=== PATIENT | male | born 1975 | race American Indian/Alaskan Native ===

== ENCOUNTER 2017-03-07 14:44 | Emergency (ER) | payer MEDICAID ==
--- NOTE | 2017-03-07 16:00 | Emergency Department Report ---
Chief Complaint: Psych Stated Complaint: THREATING Time Seen by Provider: 03/07/17 15:50 - HPI History of Present Illness: eval for tch per detention officer had baby fri - ROS Review of Systems: thc abuse probation sent her here MSE screening note: Focused history and physical exam performed. Due to findings the following was ordered: ED Disposition for MSE Condition: Stable
[2017-03-07 16:33] LABS: Basophils % (Auto) 0.8 % (0.0-1.8); Eosinophils % (Auto) 1.9 % (0.0-4.3); Hematocrit 45.8 % (35.5-45.6); Hemoglobin 15.1 gm/dl (11.8-15.2); Mean Corpuscular HGB Conc 33 % (32-34); Mean Corpuscular Hemoglobin 29 pg (28-32); Mean Corpuscular Volume 87 fl (84-94); Platelet Count 258 K/mm3 (140-440); Red Blood Count 5.29 M/mm3 (3.65-5.03); Red Cell Distribution Width 14.1 % (13.2-15.2); White Blood Count 11.8 K/mm3 (4.5-11.0)
--- NOTE | 2017-03-07 16:41 | Emergency Department Report ---
HPI - General Chief Complaint: Psych Time Seen by Provider: 03/07/17 16:37 - HPI HPI: This is a 41-year-old -[place] male who presents to the emergency department via police after patient was having some behavioral disturbance at the Social Security office. The patient says that he did nothing wrong but was angry at his aunt for trying to take his first "lump some." Apparently the patient's Aunt used to be his "studio data analyst" but the patient says that he dismissed her. The police service technician says that she thinks he has a history of schizophrenia and the patient says that he has a history of bipolar disorder. The police service technician says that he is noncompliant with his medication and the patient says that he is compliant with his medication but he cannot remove her the name of it. He currently denies any suicidal or homicidal ideations or any auditory or visual hallucinations. He denies any past medical history. ED Past Medical Hx - Past Medical History Previous Medical History?: Yes Hx Psychiatric Treatment: Yes (DEPRESSION / BIPOLAR / SCHIZOPHRENIA) - Surgical History Past Surgical History?: Yes Hx Cholecystectomy: Yes (March 2014) - Social History Smoking Status: Never Smoker Substance Use Type: None - Medications Home Medications: Home Medications Medication Instructions Recorded Confirmed Last Taken Type No Known Home Medications [No 10/14/16 10/14/16 Unknown History Reported Home Medications] ED Review of Systems ROS: Stated complaint: THREATING Other details as noted in HPI Comment: All other systems reviewed and negative Constitutional: denies: chills, fever Eyes: denies: eye pain, eye discharge, vision change ENT: denies: ear pain, throat pain Respiratory: denies: cough, shortness of breath, wheezing Cardiovascular: denies: chest pain, palpitations Gastrointestinal: denies: abdominal pain, nausea, diarrhea Genitourinary: denies: urgency, dysuria Musculoskeletal: denies: back pain, joint swelling, arthralgia Skin: denies: rash, lesions Neurological: denies: headache, weakness, paresthesias Psychiatric: denies: auditory hallucinations, visual hallucinations, homicidal thoughts, suicidal thoughts Physical Exam - Physical Exam Vital Signs: Vital Signs 03/07/17 16:12 Temperature 98.4 F Pulse Rate 78 Respiratory 16 Rate Blood Pressure 134/93 [Right] O2 Sat by Pulse 97 Oximetry Physical Exam: GENERAL: The patient is well-developed well-nourished. HEENT: Normocephalic. Atraumatic. Extraocular motions are intact. Patient has moist mucous membranes. Pupils equal reactive to light bilaterally. NECK: Supple. Trachea is midline. CHEST/LUNGS: Clear to auscultation. There is no respiratory distress noted. HEART/CARDIOVASCULAR: Regular. There is no tachycardia. There is no gallop rub or murmur. ABDOMEN: Abdomen is soft, nontender. Patient has normal bowel sounds. There is no abdominal distention. SKIN: There is no rash. There is no edema. There is no diaphoresis. NEURO: The patient is awake, alert, and oriented. The patient is cooperative. The patient has no focal neurologic deficits. The patient has normal speech. Cranial nerves II through XII grossly intact. MUSCULOSKELETAL: There is no tenderness or deformity. There is no limitation range of motion. There is no evidence of acute injury. ED Course Vital Signs 03/07/17 16:12 Temperature 98.4 F Pulse Rate 78 Respiratory 16 Rate Blood Pressure 134/93 [Right] O2 Sat by Pulse 97 Oximetry ED Medical Decision Making - Lab Data Result diagrams: 03/07/17 16:18 03/07/17 16:18 - Medical Decision Making 41-year-old male presents the emergency department for a medical evaluation and possible psychiatric evaluation as he was brought in by the police after having some type of behavioral disturbance or angry outburst at the social security office. However the police have not filled out any form saying that the patient was threatening, acting appropriately or any documentation whatsoever. The patient currently is calm, cooperative, cognizant, AAO 3. He denies any homicidal or suicidal ideations, auditory or visual hallucinations. Patient labs thus far been unremarkable. Vital signs stable throughout his ED course. I had the crisis therapist, and talk with the patient and agrees that he does not fit criteria to be made a 1013. I am not sure what the police department intention is regarding arrest versus release, however the patient does not appear to be someone who I need to make a 1013 at this time and therefore is medically cleared for the police to make their decision. - Differential Diagnosis bipolar disorder, schizophrenia, substance abuse, depression Critical Care Time: No Critical care attestation.: If time is entered above; I have spent that time in minutes in the direct care of this critically ill patient, excluding procedure time. ED Disposition Clinical Impression: History of bipolar disorder, Anger reaction Disposition: DISCHARGED TO HOME OR SELFCARE Is pt being admited?: No Condition: Stable Instructions: Bipolar Disorder (ED) Additional Instructions: Please follow-up with a primary care doctor and psychiatrist. I have given you local clinics or departments nearby for this follow-up. Return to the emergency department with any worsening of your symptoms or any acute distress. Referrals: [facility] [Outside] - 3-5 Days [facility] [Outside] - 3-5 Days Time of Disposition: 17:02
[2017-03-07 16:59] LABS: Alanine Aminotransferase 32 units/L (7-56); Albumin 4.2 g/dL (3.9-5); Albumin/Globulin Ratio 1.8 %; Alkaline Phosphatase 62 units/L (35-129); Anion Gap 17 mmol/L; BUN/Creatinine Ratio 9.23; Blood Urea Nitrogen 12 mg/dL (9-20); Calcium 9.3 mg/dL (8.4-10.2); Carbon Dioxide 27 mmol/L (22-30); Chloride 101.9 mmol/L (98-107); Glucose 97 mg/dL (75-100); Potassium 3.9 mmol/L (3.6-5.0); Sodium 142 mmol/L (137-145); Total Protein 6.5 g/dL (6.3-8.2)
[2017-03-07 17:33] VITALS: BP 139/76
== END 2017-03-07 17:32 | disposition home or self-care (01) ==
LOC: ED 14:44
DX: R45.6 Violent behavior (principal); R45.4 Irritability and anger; F31.9 Bipolar disorder, unspecified; F20.9 Schizophrenia, unspecified
CPT/HCPCS: 36415; 80053; 84443; 85025; 99284; G0480; 80320

== ENCOUNTER 2017-07-26 12:54 | Emergency (ER) | payer MEDICAID ==
[2017-07-26 13:05] VITALS: BP 140/92
[2017-07-26] MEDS ORDERED: ZOFRAN ODT PO ONE (13:05)
--- NOTE | 2017-07-26 13:08 | Emergency Department Report ---
Chief Complaint: Nausea/Vomiting/Diarrhea Stated Complaint: NAUSEA/VOMITING Time Seen by Provider: 07/26/17 13:04 - HPI History of Present Illness: PT on all fours. PT dry heaving. PT states this started this morning. PT keeps requesting to be put in a shower. PT difficult to get any information from - Exam Vital Signs: Vital Signs 07/26/17 13:01 Temperature 98.1 F Pulse Rate 78 Respiratory 20 Rate Blood Pressure 140/92 O2 Sat by Pulse 100 Oximetry Physical Exam: PT on all fours. PT states he is unable to sit up MSE screening note: Focused history and physical exam performed. Due to findings the following was ordered: labs, meds ED Disposition for MSE Condition: Stable
[2017-07-26 16:22] LABS: Hematocrit 47.5 % (35.5-45.6); Hemoglobin 15.4 gm/dl (11.8-15.2); Mean Corpuscular HGB Conc 32 % (32-34); Mean Corpuscular Hemoglobin 28 pg (28-32); Mean Corpuscular Volume 86 fl (84-94); Red Blood Count 5.55 M/mm3 (3.65-5.03); White Blood Count 14.8 K/mm3 (4.5-11.0)
[2017-07-26 16:23] LABS: Basophils % (Auto) 0.2 % (0.0-1.8); Eosinophils % (Auto) 0.1 % (0.0-4.3); Platelet Count 289 K/mm3 (140-440); Red Cell Distribution Width 13.7 % (13.2-15.2)
[2017-07-26 16:36] LABS: Alanine Aminotransferase 37 units/L (7-56); Albumin 4.8 g/dL (3.9-5); Albumin/Globulin Ratio 1.5 %; Alkaline Phosphatase 62 units/L (35-129); Anion Gap 21 mmol/L; BUN/Creatinine Ratio 7; Blood Urea Nitrogen 8 mg/dL (9-20); Calcium 9.7 mg/dL (8.4-10.2); Carbon Dioxide 24 mmol/L (22-30); Chloride 101.8 mmol/L (98-107); Glucose 128 mg/dL (75-100); Lipase 23 units/L (13-60); Potassium 3.9 mmol/L (3.6-5.0); Sodium 143 mmol/L (137-145); Total Protein 8.1 g/dL (6.3-8.2)
== END 2017-07-26 15:15 | disposition left against medical advice (07) ==
LOC: ED 12:54
DX: R11.2 Nausea with vomiting, unspecified (principal); Z53.21 Procedure and treatment not carried out due to patient leaving prior to being seen by health care provider
CPT/HCPCS: 36415; 80053; 83690; 85025; Q0162

== ENCOUNTER 2017-09-05 20:12 | Inpatient (IN) | payer MEDICAID ==
[2017-09-05] MEDS ORDERED: TYLENOL PO ONE (20:34)
[2017-09-05 21:04] LABS: Basophils % (Auto) 0.6 % (0.0-1.8); Hematocrit 47.7 % (35.5-45.6); Hemoglobin 15.7 gm/dl (11.8-15.2); Mean Corpuscular HGB Conc 33 % (32-34); Mean Corpuscular Hemoglobin 28 pg (28-32); Mean Corpuscular Volume 86 fl (84-94); Platelet Count 289 K/mm3 (140-440); Red Blood Count 5.57 M/mm3 (3.65-5.03); Red Cell Distribution Width 14.3 % (13.2-15.2); White Blood Count 19.9 K/mm3 (4.5-11.0)
[2017-09-05 21:06] LABS: Bilirubin,Urine NEG (Negative); Blood,Urine MOD (Negative); Ketones,Urine TR mg/dL (Negative); Leukocyte Esterase,Urine NEG (Negative); Mucus,Urine 3+ /HPF; Nitrite,Urine NEG (Negative); Urobilinogen,Urine < 2.0 mg/dL (<2.0)
[2017-09-05 21:07] LABS: Protein,Urine >500 mg/dL (Negative)
[2017-09-05 21:16] LABS: Alanine Aminotransferase 25 units/L (7-56); Albumin 5.2 g/dL (3.9-5); Albumin/Globulin Ratio 1.6 %; Alkaline Phosphatase 59 units/L (35-129); Anion Gap 28 mmol/L; BUN/Creatinine Ratio 11; Blood Urea Nitrogen 14 mg/dL (9-20); Calcium 10.1 mg/dL (8.4-10.2); Carbon Dioxide 21 mmol/L (22-30); Chloride 95.5 mmol/L (98-107); Glucose 138 mg/dL (75-100); Lipase 39 units/L (13-60); Potassium 4.1 mmol/L (3.6-5.0); Sodium 140 mmol/L (137-145); Total Protein 8.4 g/dL (6.3-8.2)
[2017-09-06] MEDS ORDERED: NACL 0.9% 1000 ML 2,000 ML IV ONE (03:22)
[2017-09-06] MEDS ORDERED: DILAUDID IV ONE (03:24)
[2017-09-06] MEDS: ZOSYN/NS 3.375GM/50ML 3.375 GM/50 ML BAG IV SCH ×2 (04:32→05:59)
[2017-09-06] MEDS ORDERED: NACL ONE (06:05)
--- NOTE | 2017-09-06 06:29 | Emergency Department Report ---
HPI - General Chief Complaint: Abdominal Pain Time Seen by Provider: 09/06/17 06:02 - HPI HPI: This is a 75-[id number][place][id number]-[place] male presents to the emergency department with a complaint of nausea and vomiting that has been going on for the past month. He says that his abdominal pain mostly has been with vomiting but he has some discomfort in the upper quadrants. The patient says "I got my gallbladder out but probably have some infection up there again." He has not taken anything for his symptoms prior to presentation. No recent travel or sick contacts at home. He does not have a primary care physician. He denies any other past medical history. He has a psychiatric history of bipolar disorder and depression. ED Past Medical Hx - Past Medical History Hx Psychiatric Treatment: Yes (DEPRESSION / BIPOLAR / SCHIZOPHRENIA) - Surgical History Hx Cholecystectomy: Yes (March 2014) - Social History Smoking Status: Current Every Day Smoker Substance Use Type: None - Medications Home Medications: Home Medications Medication Instructions Recorded Confirmed Last Taken Type No Known Home Medications [No 10/14/16 09/06/17 Unknown History Reported Home Medications] ED Review of Systems ROS: Stated complaint: NAUSEA/VOMITING Other details as noted in HPI Comment: All other systems reviewed and negative Constitutional: denies: chills, fever Eyes: denies: eye pain, eye discharge, vision change ENT: denies: ear pain, throat pain Respiratory: denies: cough, shortness of breath, wheezing Cardiovascular: denies: chest pain, palpitations Gastrointestinal: abdominal pain, nausea, vomiting Genitourinary: denies: urgency, dysuria Musculoskeletal: denies: back pain, joint swelling, arthralgia Skin: denies: rash, lesions Neurological: denies: headache, weakness, paresthesias Physical Exam - Physical Exam Vital Signs: Vital Signs 09/05/17 09/05/17 09/05/17 20:27 20:30 20:35 Temperature 100.5 F H 100.5 F H Pulse Rate 118 H 111 H Respiratory 18 18 18 Rate Blood Pressure 151/91 151/91 O2 Sat by Pulse 97 98 Oximetry 09/06/17 09/06/17 09/06/17 02:07 02:09 02:15 Temperature 99.2 F Pulse Rate 92 H Respiratory 20 33 H Rate Blood Pressure 129/77 O2 Sat by Pulse 99 96 Oximetry 09/06/17 09/06/17 09/06/17 02:30 02:45 03:00 Temperature Pulse Rate 91 H 94 H 101 H Respiratory 29 H 25 H 21 Rate Blood Pressure 130/79 118/76 110/84 O2 Sat by Pulse 94 96 93 Oximetry 09/06/17 09/06/17 09/06/17 03:15 03:30 03:46 Temperature Pulse Rate 90 103 H 109 H Respiratory 16 18 17 Rate Blood Pressure 132/78 126/81 140/101 O2 Sat by Pulse 92 91 96 Oximetry 09/06/17 09/06/17 09/06/17 04:00 04:15 04:30 Temperature Pulse Rate 94 H 94 H 88 Respiratory 25 H 29 H 26 H Rate Blood Pressure 144/87 118/71 131/79 O2 Sat by Pulse 89 95 94 Oximetry 09/06/17 09/06/17 09/06/17 04:45 05:00 05:15 Temperature Pulse Rate 85 85 90 Respiratory 26 H 23 18 Rate Blood Pressure 123/72 121/73 136/76 O2 Sat by Pulse 89 91 93 Oximetry 09/06/17 05:30 Temperature Pulse Rate 91 H Respiratory 19 Rate Blood Pressure 132/73 O2 Sat by Pulse 96 Oximetry Physical Exam: GENERAL: The patient is well-developed well-nourished. HENT: Normocephalic. Atraumatic. Patient has moist mucous membranes. EYES: Extraocular motions are intact. Pupils equal reactive to light bilaterally. NECK: Supple. Trachea is midline. CHEST/LUNGS: Clear to auscultation. There is no respiratory distress noted. HEART/CARDIOVASCULAR: Regular. There is mild tachycardia. There is no gallop rub or murmur. ABDOMEN: Abdomen is soft. There is upper abdominal tenderness to palpation. No guarding rebound tenderness. Patient has normal bowel sounds. There is no abdominal distention. SKIN: There is no rash. There is no edema. There is no diaphoresis. NEURO: The patient is awake, alert, and oriented. The patient is cooperative. The patient has no focal neurologic deficits. The patient has normal speech. MUSCULOSKELETAL: There is no tenderness or deformity. There is no limitation range of motion. There is no evidence of acute injury. ED Course Vital Signs 09/05/17 09/05/17 09/05/17 20:27 20:30 20:35 Temperature 100.5 F H 100.5 F H Pulse Rate 118 H 111 H Respiratory 18 18 18 Rate Blood Pressure 151/91 151/91 O2 Sat by Pulse 97 98 Oximetry 09/06/17 09/06/17 09/06/17 02:07 02:09 02:15 Temperature 99.2 F Pulse Rate 92 H Respiratory 20 33 H Rate Blood Pressure 129/77 O2 Sat by Pulse 99 96 Oximetry 09/06/17 09/06/17 09/06/17 02:30 02:45 03:00 Temperature Pulse Rate 91 H 94 H 101 H Respiratory 29 H 25 H 21 Rate Blood Pressure 130/79 118/76 110/84 O2 Sat by Pulse 94 96 93 Oximetry 09/06/17 09/06/17 09/06/17 03:15 03:30 03:46 Temperature Pulse Rate 90 103 H 109 H Respiratory 16 18 17 Rate Blood Pressure 132/78 126/81 140/101 O2 Sat by Pulse 92 91 96 Oximetry 09/06/17 09/06/17 09/06/17 04:00 04:15 04:30 Temperature Pulse Rate 94 H 94 H 88 Respiratory 25 H 29 H 26 H Rate Blood Pressure 144/87 118/71 131/79 O2 Sat by Pulse 89 95 94 Oximetry 09/06/17 09/06/17 09/06/17 04:45 05:00 05:15 Temperature Pulse Rate 85 85 90 Respiratory 26 H 23 18 Rate Blood Pressure 123/72 121/73 136/76 O2 Sat by Pulse 89 91 93 Oximetry 09/06/17 05:30 Temperature Pulse Rate 91 H Respiratory 19 Rate Blood Pressure 132/73 O2 Sat by Pulse 96 Oximetry ED Medical Decision Making - Lab Data Result diagrams: 09/05/17 20:44 09/05/17 20:44 - Radiology Data Radiology results: report reviewed, image reviewed interpreted by me: Chest x-ray does not show any acute process. There are no pleural effusions, obvious pneumonia and there is no pneumothorax. EXAM: CT ABDOMEN PELVIS W CON HISTORY: Abdominal pain, fever, elevated WBC. TECHNIQUE: Axial CT images of the abdomen and pelvis were obtained, following the administration of intravenous and oral contrast. Delayed axial images and coronal and sagittal reformatted images were also obtained. No prior studies are available for comparison. FINDINGS: The liver, biliary tree, pancreas, spleen, adrenal glands, and left kidney are unremarkable. The patient is status post cholecystectomy. A 2.3 cm cyst is seen in the right lower renal pole. There is no urinary tract obstruction. There is a small hiatal hernia. The stomach is collapsed, not well evaluated. There are multiple colonic diverticula throughout the colon, extending from the cecum to the proximal sigmoid colon. There is no evidence of acute diverticulitis. The rectum is partially collapsed, and underlying wall thickening cannot be evaluated. There is no intestinal obstruction or free air. Of note, the appendix is air and contrast filled, normal in appearance. There is a small fat containing periumbilical ventral hernia. The abdominal aorta is normal in caliber. There is no pathologic abdominal or pelvic lymphadenopathy. There is no free or loculated fluid collection. The prostate gland is normal in size, with central calcifications. The unopacified urinary bladder is unremarkable. There is a tiny 1.2 cm fat containing right inguinal hernia. No discrete osseous abnormality is seen. There is mild central bronchiectasis at the lung bases. There is mild subpleural consolidation at the right posterior lung base. There is additional subpleural linear dependent changes at both posterior lower lobes. IMPRESSION: 1. No intestinal obstruction or free air. Normal CT appearance of the appendix. 2. Small hiatal hernia. Colonic diverticulosis. 3. Right lower pole renal cyst. No free or loculated fluid collection. 4. Mild subpleural pulmonary consolidation in the posterior right lung base. Mild central bronchiectasis. - Medical Decision Making 42-year-old male presents with some nausea, vomiting, upper abdominal discomfort. He presents with a fever and has had some tachycardia. Labs show a leukocytosis of 20,000 with a left shift. CT of the abdomen and pelvis was done that showed a small hiatal hernia and possible mild subpleural pulmonary consolidation. However chest x-ray did not show any obvious signs of pneumonia or any concern for mass. Patient has SIRS criteria without an obvious source of infection. He received some pain medication, antibiotics, fluid, nausea medication and will be admitted to the hospital for further evaluation and treatment and has been accepted by the hospitalist service. - Differential Diagnosis choledocholithiasis, gastritis, colitis, food poisoning, appendicitis Critical Care Time: No Critical care attestation.: If time is entered above; I have spent that time in minutes in the direct care of this critically ill patient, excluding procedure time. ED Disposition Clinical Impression: SIRS (systemic inflammatory response syndrome) Leukocytosis Qualifiers: Leukocytosis type: unspecified Qualified Code(s): D72.829 - Elevated white blood cell count, unspecified Abdominal pain Qualifiers: Abdominal location: upper abdomen, unspecified Qualified Code(s): R10.10 - Upper abdominal pain, unspecified Nausea & vomiting Qualifiers: Vomiting type: unspecified Vomiting Intractability: non-intractable Qualified Code(s): R11.2 - Nausea with vomiting, unspecified Disposition: OP ADMIT IP TO THIS HOSP Is pt being admited?: Yes Condition: Stable Time of Disposition: 10:00
--- NOTE | 2017-09-06 07:34 | Cat Scan Report ---
FINAL REPORT EXAM: CT ABDOMEN PELVIS W CON HISTORY: Abdominal pain, fever, elevated WBC. TECHNIQUE: Axial CT images of the abdomen and pelvis were obtained, following the administration of intravenous and oral contrast. Delayed axial images and coronal and sagittal reformatted images were also obtained. No prior studies are available for comparison. FINDINGS: The liver, biliary tree, pancreas, spleen, adrenal glands, and left kidney are unremarkable. The patient is status post cholecystectomy. A 2.3 cm cyst is seen in the right lower renal pole. There is no urinary tract obstruction. There is a small hiatal hernia. The stomach is collapsed, not well evaluated. There are multiple colonic diverticula throughout the colon, extending from the cecum to the proximal sigmoid colon. There is no evidence of acute diverticulitis. The rectum is partially collapsed, and underlying wall thickening cannot be evaluated. There is no intestinal obstruction or free air. Of note, the appendix is air and contrast filled, normal in appearance. There is a small fat containing periumbilical ventral hernia. The abdominal aorta is normal in caliber. There is no pathologic abdominal or pelvic lymphadenopathy. There is no free or loculated fluid collection. The prostate gland is normal in size, with central calcifications. The unopacified urinary bladder is unremarkable. There is a tiny 1.2 cm fat containing right inguinal hernia. No discrete osseous abnormality is seen. There is mild central bronchiectasis at the lung bases. There is mild subpleural consolidation at the right posterior lung base. There is additional subpleural linear dependent changes at both posterior lower lobes. IMPRESSION: 1. No intestinal obstruction or free air. Normal CT appearance of the appendix. 2. Small hiatal hernia. Colonic diverticulosis. 3. Right lower pole renal cyst. No free or loculated fluid collection. 4. Mild subpleural pulmonary consolidation in the posterior right lung base. Mild central bronchiectasis.
--- NOTE | 2017-09-06 09:00 | XRay Report ---
Chest 2 views: History: Fever. Findings: Normal cardiomediastinal silhouette. Trachea is midline. No consolidation, pneumothorax or pleural effusion. Impression: No acute cardiopulmonary findings.
--- NOTE | 2017-09-06 10:07 | History and Physical Report ---
<THOMAS BRADY - Last Filed: 09/06/17 12:41> History of Present Illness Date of examination: 09/06/17 Date of admission: 09/06/2017 Chief complaint: nausea, vomiting and RUQ abdominal pain History of present illness: Patient is a 41-year-old male with past medical history of schizophrenia, bipolar disorder multiple attempt of suicide presenting with a chief complaint nausea, vomiting and RUQ abdominal pain. The patient states that for the past month she has been vomiting and has had a decrease in appetite. Two days ago she began having intermittent RUQ abdominal pain that initially felt like gas pains but it has now progressed to being nearly constant. Since yesterday she has had severe nausea and has had 8 episodes of non-bilious vomiting. His last bowel movement was over five days ago. Initially , when he drink alcohol the pain would increase but he has not consume alcohol for the last 5 days. Vomiting is the only thing that seems to provide some minimal relief. Currently, the pain is described as a intermittently sharp and well localized. The intensity of the pain has been increasing over the past two days and he denies abdominal pain at present time. He denies a recent history of fever, jaundice, pruritis, diarrhea, hemoptysis, melena, or hematochezia. He denies a known history of, colon cancer, peptic ulcer disease, gastritis, acid reflux. He has history of cholecystectomy. He admits smoking and alcohol consumption. Patient denies any recent active attempts at harming himself or others as a shooting. Patient stated that he wanted to be checked for HIV because he has unprotected sex for the past 6 month. Past History Past Medical History: other ( Schizophrenia, bipolar disorder multiple attempt of suicide ) Past Surgical History: cholecystectomy Medications and Allergies Allergies Allergy/AdvReac Type Severity Reaction Status Date / Time No Known Allergies Allergy Verified 10/14/16 15:38 Home Medications Medication Instructions Recorded Confirmed Last Taken Type No Known Home Medications [No 10/14/16 09/06/17 Unknown History Reported Home Medications] Active Meds: Active Medications Acetaminophen (Tylenol) 650 mg PO Q4H PRN PRN Reason: Pain MILD(1-3)/Fever >100.5/REN Bisacodyl (Dulcolax) 10 mg SC QDAY PRN PRN Reason: Constipation unrelieved by MOM Enoxaparin Sodium (Lovenox) 40 mg SUB-Q QDAY [facility] Piperacillin Sod/Tazobactam Sod (Zosyn/Ns 3.375gm/50ml) 3.375 gm in 50 mls @ 100 mls/hr IV Q6HR [facility] Last Admin: 09/06/17 05:59 Dose: Not Given Sodium Chloride (Nacl 0.9% 1000 Ml) 1,000 mls @ 100 mls/hr IV DIRECT LOS Ondansetron HCl (Zofran) 4 mg IM Q4H PRN PRN Reason: Nausea And Vomiting Review of Systems Constitutional: no weight loss, no weight gain, no fever, no sweats Ears, nose, mouth and throat: no ear discharge, no tinnitis, no decreased hearing, no nose pain, no nasal congestion Cardiovascular: no chest pain, no orthopnea, no palpitations, no rapid/ irregular heart beat Respiratory: no cough with sputum, no excessive sputum, no hemoptysis, no shortness of breath Gastrointestinal: abdominal pain, nausea, vomiting, no diarrhea, no constipation Genitourinary Male: no discharge, no urinary frequency Rectal: no incontinence, no bleeding Musculoskeletal: no shooting arm pain, no arm numbness/tingling, no low back pain Integumentary: no pruritis, no redness, no sores Neurological: no weakness, no parathesias, no numbness Psychiatric: no anxiety, no memory loss, no change in sleep habits, no sleep disturbances Endocrine: no heat intolerance, no polyphagia, no excessive thirst Hematologic/Lymphatic: no easy bruising, no easy bleeding Allergic/Immunologic: no urticaria, no allergic rhinitis Exam - Constitutional Vitals: Temp Pulse Resp BP Pulse Ox 99.2 F 82 16 133/76 92 09/06/17 02:07 09/06/17 08:00 09/06/17 08:00 09/06/17 08:00 09/06/17 08:00 General appearance: Present: no acute distress - EENT Eyes: Present: PERRL ENT: hearing intact - Neck Neck: Present: supple - Respiratory Respiratory effort: normal Respiratory: bilateral: CTA - Cardiovascular Rhythm: regular Heart Sounds: Present: S1 & S2 - Abdominal General gastrointestinal: Present: soft, non-tender Male genitourinary: Present: deferred - Rectal Rectal Exam: deferred - Integumentary Integumentary: Present: clear, warm, dry - Musculoskeletal Musculoskeletal: strength equal bilaterally - Psychiatric Psychiatric: appropriate mood/affect - Neurologic Neurologic: CNII-XII intact - Allied Health Allied health notes reviewed: nursing Results - Labs CBC & Chem 7: 09/05/17 20:44 09/05/17 20:44 Labs: Laboratory Last Values WBC 19.9 K/mm3 (4.5-11.0) H 09/05/17 20:44 RBC 5.57 M/mm3 (3.65-5.03) H 09/05/17 20:44 Hgb 15.7 gm/dl (11.8-15.2) H 09/05/17 20:44 Hct 47.7 % (35.5-45.6) H 09/05/17 20:44 MCV 86 fl (84-94) 09/05/17 20:44 MCH 28 pg (28-32) 09/05/17 20:44 MCHC 33 % (32-34) 09/05/17 20:44 RDW 14.3 % (13.2-15.2) 09/05/17 20:44 Plt Count 289 K/mm3 (140-440) 09/05/17 20:44 Lymph % (Auto) 9.7 % (13.4-35.0) L 09/05/17 20:44 [place] % (Auto) 3.2 % (0.0-7.3) 09/05/17 20:44 Eos % (Auto) 0.0 % (0.0-4.3) 09/05/17 20:44 Baso % (Auto) 0.6 % (0.0-1.8) 09/05/17 20:44 Lymph # 1.9 K/mm3 (1.2-5.4) 09/05/17 20:44 [place] # 0.6 K/mm3 (0.0-0.8) 09/05/17 20:44 Eos # 0.0 K/mm3 (0.0-0.4) 09/05/17 20:44 Baso # 0.1 K/mm3 (0.0-0.1) 09/05/17 20:44 Seg Neutrophils % 86.5 % (40.0-70.0) H 09/05/17 20:44 Seg Neutrophils # 17.2 K/mm3 (1.8-7.7) H 09/05/17 20:44 Sodium 140 mmol/L (137-145) 09/05/17 20:44 Potassium 4.1 mmol/L (3.6-5.0) 09/05/17 20:44 Chloride 95.5 mmol/L (98-107) L 09/05/17 20:44 Carbon Dioxide 21 mmol/L (22-30) L 09/05/17 20:44 Anion Gap 28 mmol/L 09/05/17 20:44 BUN 14 mg/dL (9-20) 09/05/17 20:44 Creatinine 1.3 mg/dL (0.8-1.5) 09/05/17 20:44 Estimated GFR > 60 ml/min 09/05/17 20:44 BUN/Creatinine Ratio 11 % 09/05/17 20:44 Glucose 138 mg/dL (75-100) H 09/05/17 20:44 Lactic Acid 1.60 mmol/L (0.7-2.0) 09/06/17 09:25 Calcium 10.1 mg/dL (8.4-10.2) 09/05/17 20:44 Total Bilirubin 1.20 mg/dL (0.1-1.2) 09/05/17 20:44 AST 26 units/L (5-40) 09/05/17 20:44 ALT 25 units/L (7-56) 09/05/17 20:44 Alkaline Phosphatase 59 units/L (35-129) 09/05/17 20:44 Total Protein 8.4 g/dL (6.3-8.2) H 09/05/17 20:44 Albumin 5.2 g/dL (3.9-5) H 09/05/17 20:44 Albumin/Globulin Ratio 1.6 % 09/05/17 20:44 Lipase 39 units/L (13-60) 09/05/17 20:44 Urine Color Yellow (Yellow) 09/05/17 20:45 Urine Turbidity Clear (Clear) 09/05/17 20:45 Urine pH 5.0 (5.0-7.0) 09/05/17 20:45 Ur Specific [place] 1.032 (1.003-1.030) H 09/05/17 20:45 Urine Protein >500 mg/dL (Negative) 09/05/17 20:45 Urine Glucose (UA) Neg mg/dL (Negative) 09/05/17 20:45 Urine Ketones Tr mg/dL (Negative) 09/05/17 20:45 Urine Blood Mod (Negative) 09/05/17 20:45 Urine Nitrite Neg (Negative) 09/05/17 20:45 Urine Bilirubin Neg (Negative) 09/05/17 20:45 Urine Urobilinogen < 2.0 mg/dL (<2.0) 09/05/17 20:45 Ur Leukocyte Esterase Neg (Negative) 09/05/17 20:45 Urine WBC (Auto) 2.0 /HPF (0.0-6.0) 09/05/17 20:45 Urine RBC (Auto) 1.0 /HPF (0.0-6.0) 09/05/17 20:45 U Epithel Cells (Auto) < 1.0 /HPF (0-13.0) 09/05/17 20:45 Urine Mucus 3+ /HPF 09/05/17 20:45 - Imaging and Cardiology Chest x-ray: image reviewed (unremarkable) CT scan - abdomen: image reviewed (Pulmonary consolidation in the posterior right lung base.) Assessment and Plan Assessment and plan: Patient is a 41-year-old male with past medical history of schizophrenia, bipolar disorder multiple attempt of suicide presenting with a chief complaint nausea, vomiting and RUQ abdominal pain. Sepsis Patient meets sepsis creteria with leukocytosis, tachycardia and tachypnea Blood cultures collected prior to antibiotic Follow blood cultures Aggressive IV fluid resuscitation Initiated with empiric Iv Zosyn Pneumonia Chest X-ray showed Pulmonary consolidation in the posterior right lung base. We will D/C abx if patient did not develop fever Started on IV Rocephin and azithromycin Intractable nausea and vomiting Antiemetic IV Fluid Supportive care Abdominal Pain Resolved CT of the abdomen unremarkable Schizophrenia/bipolar Stable at this point Closely monitor Dehydration IV fluid hydration HIV Patient requested for HIV test because he has unprotected sex for the past 6 month. We will get Rapid HIV test DVT prophylaxis Lovenox Advance Directives: Yes VTE prophylaxis?: Chemical Contraindication Mechanical VTE Prophylaxis: Treatment Not Indicated Plan of care discussed with patient/family: Yes <MEHRAN TUCKER R - Last Filed: 09/06/17 12:41> History of Present Illness Date of admission: 09/06/17 10:00 Medications and Allergies Active Meds: Active Medications Acetaminophen (Tylenol) 650 mg PO Q4H PRN PRN Reason: Pain MILD(1-3)/Fever >100.5/REN Bisacodyl (Dulcolax) 10 mg SC QDAY PRN PRN Reason: Constipation Enoxaparin Sodium (Lovenox) 40 mg SUB-Q QDAY LOS Last Admin: 09/06/17 10:40 Dose: 40 mg Hydromorphone HCl (Dilaudid) 0.5 mg IV Q4H PRN PRN Reason: Pain , Severe (7-10) Sodium Chloride (Nacl 0.9% 1000 Ml) 1,000 mls @ 100 mls/hr IV DIRECT LOS Azithromycin 500 mg/ Sodium (Chloride) 250 mls @ 250 mls/hr IV Q24HR LOS Ceftriaxone Sodium (Rocephin/Ns 1 Gm/50 Ml) 1 gm in 50 mls @ 100 mls/hr IV Q24HR LOS Ondansetron HCl (Zofran) 4 mg IV Q4H PRN PRN Reason: Nausea And Vomiting Exam - Constitutional Vitals: Temp Pulse Resp BP Pulse Ox 99.9 F H 91 H 20 133/84 98 09/06/17 12:25 09/06/17 12:25 09/06/17 12:25 09/06/17 12:25 09/06/17 12:25 Results - Labs CBC & Chem 7: 09/05/17 20:44 09/05/17 20:44 Labs: Laboratory Last Values WBC 19.9 K/mm3 (4.5-11.0) H 09/05/17 20:44 RBC 5.57 M/mm3 (3.65-5.03) H 09/05/17 20:44 Hgb 15.7 gm/dl (11.8-15.2) H 09/05/17 20:44 Hct 47.7 % (35.5-45.6) H 09/05/17 20:44 MCV 86 fl (84-94) 09/05/17 20:44 MCH 28 pg (28-32) 09/05/17 20:44 MCHC 33 % (32-34) 09/05/17 20:44 RDW 14.3 % (13.2-15.2) 09/05/17 20:44 Plt Count 289 K/mm3 (140-440) 09/05/17 20:44 Lymph % (Auto) 9.7 % (13.4-35.0) L 09/05/17 20:44 [place] % (Auto) 3.2 % (0.0-7.3) 09/05/17 20:44 Eos % (Auto) 0.0 % (0.0-4.3) 09/05/17 20:44 Baso % (Auto) 0.6 % (0.0-1.8) 09/05/17 20:44 Lymph # 1.9 K/mm3 (1.2-5.4) 09/05/17 20:44 [place] # 0.6 K/mm3 (0.0-0.8) 09/05/17 20:44 Eos # 0.0 K/mm3 (0.0-0.4) 09/05/17 20:44 Baso # 0.1 K/mm3 (0.0-0.1) 09/05/17 20:44 Seg Neutrophils % 86.5 % (40.0-70.0) H 09/05/17 20:44 Seg Neutrophils # 17.2 K/mm3 (1.8-7.7) H 09/05/17 20:44 Sodium 140 mmol/L (137-145) 09/05/17 20:44 Potassium 4.1 mmol/L (3.6-5.0) 09/05/17 20:44 Chloride 95.5 mmol/L (98-107) L 09/05/17 20:44 Carbon Dioxide 21 mmol/L (22-30) L 09/05/17 20:44 Anion Gap 28 mmol/L 09/05/17 20:44 BUN 14 mg/dL (9-20) 09/05/17 20:44 Creatinine 1.3 mg/dL (0.8-1.5) 09/05/17 20:44 Estimated GFR > 60 ml/min 09/05/17 20:44 BUN/Creatinine Ratio 11 % 09/05/17 20:44 Glucose 138 mg/dL (75-100) H 09/05/17 20:44 Lactic Acid 1.60 mmol/L (0.7-2.0) 09/06/17 09:25 Calcium 10.1 mg/dL (8.4-10.2) 09/05/17 20:44 Total Bilirubin 1.20 mg/dL (0.1-1.2) 09/05/17 20:44 AST 26 units/L (5-40) 09/05/17 20:44 ALT 25 units/L (7-56) 09/05/17 20:44 Alkaline Phosphatase 59 units/L (35-129) 09/05/17 20:44 Total Protein 8.4 g/dL (6.3-8.2) H 09/05/17 20:44 Albumin 5.2 g/dL (3.9-5) H 09/05/17 20:44 Albumin/Globulin Ratio 1.6 % 09/05/17 20:44 Lipase 39 units/L (13-60) 09/05/17 20:44 Urine Color Yellow (Yellow) 09/05/17 20:45 Urine Turbidity Clear (Clear) 09/05/17 20:45 Urine pH 5.0 (5.0-7.0) 09/05/17 20:45 Ur Specific [place] 1.032 (1.003-1.030) H 09/05/17 20:45 Urine Protein >500 mg/dL (Negative) 09/05/17 20:45 Urine Glucose (UA) Neg mg/dL (Negative) 09/05/17 20:45 Urine Ketones Tr mg/dL (Negative) 09/05/17 20:45 Urine Blood Mod (Negative) 09/05/17 20:45 Urine Nitrite Neg (Negative) 09/05/17 20:45 Urine Bilirubin Neg (Negative) 09/05/17 20:45 Urine Urobilinogen < 2.0 mg/dL (<2.0) 09/05/17 20:45 Ur Leukocyte Esterase Neg (Negative) 09/05/17 20:45 Urine WBC (Auto) 2.0 /HPF (0.0-6.0) 09/05/17 20:45 Urine RBC (Auto) 1.0 /HPF (0.0-6.0) 09/05/17 20:45 U Epithel Cells (Auto) < 1.0 /HPF (0-13.0) 09/05/17 20:45 Urine Mucus 3+ /HPF 09/05/17 20:45 HIV 1&2 Antibody Rapid Non react (Non React) 09/06/17 10:10 HIV P24 Antigen Non react (Non React) 09/06/17 10:10 Assessment and Plan Assessment and plan: I saw and evaluated the patient. I agree with the findings and the plan of care as documented in the Nurse Practitioner's~note, with the following corrections and additions.
[2017-09-06] MEDS: LOVENOX SUB-Q SCH (10:40)
[2017-09-06] MEDS ORDERED: TYLENOL PO PRN (11:00)
[2017-09-06] MEDS ORDERED: DULCOLAX PR PRN (11:00)
[2017-09-06 11:14] LABS: HIV-1 Antigen p24 Non React (Non React); HIVR-1/2 Ab Non React (Non React)
[2017-09-06] MEDS ORDERED: ZOFRAN ONE (11:36)
[2017-09-06] MEDS: ROCEPHIN/NS 1 GM/50 ML 1 GM/50 ML BAG IV SCH (13:02)
[2017-09-06] MEDS: ZOFRAN IV PRN ×2 (13:52→23:25)
[2017-09-06] MEDS: ZITHROMAX 500 MG in NACL 0.9% 250ML 250 ML IV SCH (13:53)
[2017-09-06] MEDS: NACL 0.9% 1000 ML 1,000 ML IV SCH (16:41)
[2017-09-06] MEDS: DILAUDID IV PRN (23:26)
[2017-09-07] MEDS: ZOFRAN IV PRN ×4 (03:51→22:57)
[2017-09-07 04:32] LABS: Basophils % (Auto) 0.9 % (0.0-1.8); Hematocrit 40.3 % (35.5-45.6); Hemoglobin 13.7 gm/dl (11.8-15.2); Mean Corpuscular HGB Conc 34 % (32-34); Mean Corpuscular Hemoglobin 29 pg (28-32); Mean Corpuscular Volume 86 fl (84-94); Platelet Count 238 K/mm3 (140-440); Red Blood Count 4.71 M/mm3 (3.65-5.03); Red Cell Distribution Width 14.1 % (13.2-15.2); White Blood Count 12.8 K/mm3 (4.5-11.0)
[2017-09-07 04:48] LABS: Anion Gap 18 mmol/L; BUN/Creatinine Ratio 16; Blood Urea Nitrogen 19 mg/dL (9-20); Calcium 8.9 mg/dL (8.4-10.2); Carbon Dioxide 25 mmol/L (22-30); Glucose 115 mg/dL (75-100); Potassium 3.9 mmol/L (3.6-5.0); Sodium 142 mmol/L (137-145)
[2017-09-07] MEDS: ZITHROMAX 500 MG in NACL 0.9% 250ML 250 ML IV SCH (09:56)
[2017-09-07] MEDS ORDERED: ROCEPHIN/NS 1 GM/50 ML 1 GM/50 ML BAG IV SCH (10:00)
--- NOTE | 2017-09-07 10:37 | Progress Note ---
Assessment and Plan Assessment and plan: Sepsis Patient meets sepsis creteria with leukocytosis, tachycardia and tachypnea Blood cultures collected prior to antibiotic Follow blood cultures Aggressive IV fluid resuscitation Initiated with empiric Iv Zosyn Pneumonia Chest X-ray showed Pulmonary consolidation in the posterior right lung base. We will D/C abx if patient did not develop fever Started on IV Rocephin and azithromycin Intractable nausea and vomiting Antiemetic IV Fluid Supportive care Abdominal Pain Resolved CT of the abdomen unremarkable Schizophrenia/bipolar Stable at this point Closely monitor Dehydration IV fluid hydration Hiccups Consider starting Thorazine. DVT prophylaxis Lovenox Disposition. If Blood cultures are negative, likely DC in a.m. History Interval history: Patient complains of hiccups. Hospitalist Physical - Constitutional Vitals: Temp Pulse Resp BP Pulse Ox 99.6 F 73 20 122/77 99 09/07/17 08:16 09/07/17 08:16 09/07/17 08:16 09/07/17 08:16 09/07/17 08:16 General appearance: Present: no acute distress - EENT Eyes: Present: PERRL, EOM intact ENT: hearing intact, clear oral mucosa, dentition normal - Neck Neck: Present: supple, normal ROM - Respiratory Respiratory effort: normal Respiratory: bilateral: CTA - Cardiovascular Rhythm: regular Heart Sounds: Present: S1 & S2. Absent: gallop, rub - Extremities Extremities: no ischemia, No edema, Full ROM - Abdominal General gastrointestinal: soft, non-tender, non-distended, normal bowel sounds - Integumentary Integumentary: Present: clear, warm, dry - Neurologic Neurologic: CNII-XII intact, moves all extremities Results - Labs CBC & Chem 7: 09/07/17 04:15 09/07/17 04:15 Labs: Laboratory Last Values WBC 12.8 K/mm3 (4.5-11.0) H 09/07/17 04:15 RBC 4.71 M/mm3 (3.65-5.03) 09/07/17 04:15 Hgb 13.7 gm/dl (11.8-15.2) 09/07/17 04:15 Hct 40.3 % (35.5-45.6) D 09/07/17 04:15 MCV 86 fl (84-94) 09/07/17 04:15 MCH 29 pg (28-32) 09/07/17 04:15 MCHC 34 % (32-34) 09/07/17 04:15 RDW 14.1 % (13.2-15.2) 09/07/17 04:15 Plt Count 238 K/mm3 (140-440) 09/07/17 04:15 Lymph % (Auto) 15.9 % (13.4-35.0) 09/07/17 04:15 [place] % (Auto) 7.5 % (0.0-7.3) H 09/07/17 04:15 Eos % (Auto) 0.0 % (0.0-4.3) 09/07/17 04:15 Baso % (Auto) 0.9 % (0.0-1.8) 09/07/17 04:15 Lymph # 2.0 K/mm3 (1.2-5.4) 09/07/17 04:15 [place] # 1.0 K/mm3 (0.0-0.8) H 09/07/17 04:15 Eos # 0.0 K/mm3 (0.0-0.4) 09/07/17 04:15 Baso # 0.1 K/mm3 (0.0-0.1) 09/07/17 04:15 Seg Neutrophils % 75.7 % (40.0-70.0) H 09/07/17 04:15 Seg Neutrophils # 9.7 K/mm3 (1.8-7.7) H 09/07/17 04:15 Sodium 142 mmol/L (137-145) 09/07/17 04:15 Potassium 3.9 mmol/L (3.6-5.0) 09/07/17 04:15 Chloride 103.0 mmol/L (98-107) 09/07/17 04:15 Carbon Dioxide 25 mmol/L (22-30) 09/07/17 04:15 Anion Gap 18 mmol/L 09/07/17 04:15 BUN 19 mg/dL (9-20) 09/07/17 04:15 Creatinine 1.2 mg/dL (0.8-1.5) 09/07/17 04:15 Estimated GFR > 60 ml/min 09/07/17 04:15 BUN/Creatinine Ratio 16 % 09/07/17 04:15 Glucose 115 mg/dL (75-100) H 09/07/17 04:15 Hemoglobin A1c 5.7 % (4-6) 09/07/17 04:15 Lactic Acid 1.60 mmol/L (0.7-2.0) 09/06/17 09:25 Calcium 8.9 mg/dL (8.4-10.2) 09/07/17 04:15 Total Bilirubin 1.20 mg/dL (0.1-1.2) 09/05/17 20:44 AST 26 units/L (5-40) 09/05/17 20:44 ALT 25 units/L (7-56) 09/05/17 20:44 Alkaline Phosphatase 59 units/L (35-129) 09/05/17 20:44 Total Protein 8.4 g/dL (6.3-8.2) H 09/05/17 20:44 Albumin 5.2 g/dL (3.9-5) H 09/05/17 20:44 Albumin/Globulin Ratio 1.6 % 09/05/17 20:44 Lipase 39 units/L (13-60) 09/05/17 20:44 Urine Color Yellow (Yellow) 09/05/17 20:45 Urine Turbidity Clear (Clear) 09/05/17 20:45 Urine pH 5.0 (5.0-7.0) 09/05/17 20:45 Ur Specific [place] 1.032 (1.003-1.030) H 09/05/17 20:45 Urine Protein >500 mg/dL (Negative) 09/05/17 20:45 Urine Glucose (UA) Neg mg/dL (Negative) 09/05/17 20:45 Urine Ketones Tr mg/dL (Negative) 09/05/17 20:45 Urine Blood Mod (Negative) 09/05/17 20:45 Urine Nitrite Neg (Negative) 09/05/17 20:45 Urine Bilirubin Neg (Negative) 09/05/17 20:45 Urine Urobilinogen < 2.0 mg/dL (<2.0) 09/05/17 20:45 Ur Leukocyte Esterase Neg (Negative) 09/05/17 20:45 Urine WBC (Auto) 2.0 /HPF (0.0-6.0) 09/05/17 20:45 Urine RBC (Auto) 1.0 /HPF (0.0-6.0) 09/05/17 20:45 U Epithel Cells (Auto) < 1.0 /HPF (0-13.0) 09/05/17 20:45 Urine Mucus 3+ /HPF 09/05/17 20:45 HIV 1&2 Antibody Rapid Non react (Non React) 09/06/17 10:10 HIV P24 Antigen Non react (Non React) 09/06/17 10:10
[2017-09-07] MEDS: ROCEPHIN/NS 1 GM/50 ML 1 GM/50 ML BAG IV SCH (11:52)
[2017-09-07] MEDS: LOVENOX SUB-Q SCH (11:52)
[2017-09-07 12:47] LABS: Amylase 145 units/L (27-131); Lipase 24 units/L (13-60)
[2017-09-07] MEDS: NACL 0.9% 1000 ML 1,000 ML IV SCH (17:12)
[2017-09-07] MEDS: PEPCID PO SCH (22:57)
[2017-09-07] MEDS: DILAUDID IV PRN (22:57)
[2017-09-07 23:57] VITALS: BP 122/70
[2017-09-08] MEDS: ZOFRAN IV PRN ×2 (07:27→11:38)
[2017-09-08] MEDS: DILAUDID IV PRN (08:24)
[2017-09-08] MEDS ORDERED: ZITHROMAX PO SCH (10:00)
--- NOTE | 2017-09-08 10:34 | Progress Note ---
Assessment and Plan Assessment and plan: Sepsis Follow blood cultures Aggressive IV fluid resuscitation Initiated with empiric Iv Zosyn Pneumonia Chest X-ray showed Pulmonary consolidation in the posterior right lung base. Started on IV Rocephin and azithromycin Intractable nausea and vomiting. I believe that the patient may be malingering. Psych consultation. Consider GI consultation. Antiemetic IV Fluid Supportive care Abdominal Pain Resolved CT of the abdomen unremarkable Schizophrenia/bipolar Stable at this point Closely monitor Dehydration IV fluid hydration Hiccups Consider starting Thorazine. DVT prophylaxis Lovenox Disposition. If Blood cultures are negative, likely DC in a.m. History Interval history: Patient complains of hiccups. Hospitalist Physical - Constitutional Vitals: Temp Pulse Resp BP Pulse Ox 99.9 F H 78 20 122/70 92 09/07/17 23:54 09/07/17 23:54 09/08/17 05:43 09/07/17 23:54 09/07/17 23:54 General appearance: Present: no acute distress - EENT Eyes: Present: PERRL, EOM intact ENT: hearing intact, clear oral mucosa, dentition normal - Neck Neck: Present: supple, normal ROM - Respiratory Respiratory effort: normal Respiratory: bilateral: CTA - Cardiovascular Rhythm: regular Heart Sounds: Present: S1 & S2. Absent: gallop, rub - Extremities Extremities: no ischemia, No edema, Full ROM - Abdominal General gastrointestinal: soft, non-tender, non-distended, normal bowel sounds - Integumentary Integumentary: Present: clear, warm, dry - Neurologic Neurologic: CNII-XII intact, moves all extremities Results - Labs CBC & Chem 7: 09/07/17 04:15 09/07/17 04:15 Labs: Laboratory Last Values WBC 12.8 K/mm3 (4.5-11.0) H 09/07/17 04:15 RBC 4.71 M/mm3 (3.65-5.03) 09/07/17 04:15 Hgb 13.7 gm/dl (11.8-15.2) 09/07/17 04:15 Hct 40.3 % (35.5-45.6) D 09/07/17 04:15 MCV 86 fl (84-94) 09/07/17 04:15 MCH 29 pg (28-32) 09/07/17 04:15 MCHC 34 % (32-34) 09/07/17 04:15 RDW 14.1 % (13.2-15.2) 09/07/17 04:15 Plt Count 238 K/mm3 (140-440) 09/07/17 04:15 Lymph % (Auto) 15.9 % (13.4-35.0) 09/07/17 04:15 [place] % (Auto) 7.5 % (0.0-7.3) H 09/07/17 04:15 Eos % (Auto) 0.0 % (0.0-4.3) 09/07/17 04:15 Baso % (Auto) 0.9 % (0.0-1.8) 09/07/17 04:15 Lymph # 2.0 K/mm3 (1.2-5.4) 09/07/17 04:15 [place] # 1.0 K/mm3 (0.0-0.8) H 09/07/17 04:15 Eos # 0.0 K/mm3 (0.0-0.4) 09/07/17 04:15 Baso # 0.1 K/mm3 (0.0-0.1) 09/07/17 04:15 Seg Neutrophils % 75.7 % (40.0-70.0) H 09/07/17 04:15 Seg Neutrophils # 9.7 K/mm3 (1.8-7.7) H 09/07/17 04:15 Sodium 142 mmol/L (137-145) 09/07/17 04:15 Potassium 3.9 mmol/L (3.6-5.0) 09/07/17 04:15 Chloride 103.0 mmol/L (98-107) 09/07/17 04:15 Carbon Dioxide 25 mmol/L (22-30) 09/07/17 04:15 Anion Gap 18 mmol/L 09/07/17 04:15 BUN 19 mg/dL (9-20) 09/07/17 04:15 Creatinine 1.2 mg/dL (0.8-1.5) 09/07/17 04:15 Estimated GFR > 60 ml/min 09/07/17 04:15 BUN/Creatinine Ratio 16 % 09/07/17 04:15 Glucose 115 mg/dL (75-100) H 09/07/17 04:15 Hemoglobin A1c 5.7 % (4-6) 09/07/17 04:15 Lactic Acid 1.60 mmol/L (0.7-2.0) 09/06/17 09:25 Calcium 8.9 mg/dL (8.4-10.2) 09/07/17 04:15 Total Bilirubin 1.20 mg/dL (0.1-1.2) 09/05/17 20:44 AST 26 units/L (5-40) 09/05/17 20:44 ALT 25 units/L (7-56) 09/05/17 20:44 Alkaline Phosphatase 59 units/L (35-129) 09/05/17 20:44 Total Protein 8.4 g/dL (6.3-8.2) H 09/05/17 20:44 Albumin 5.2 g/dL (3.9-5) H 09/05/17 20:44 Albumin/Globulin Ratio 1.6 % 09/05/17 20:44 Amylase 145 units/L (27-131) H 09/07/17 04:15 Lipase 24 units/L (13-60) 09/07/17 04:15 Urine Color Yellow (Yellow) 09/05/17 20:45 Urine Turbidity Clear (Clear) 09/05/17 20:45 Urine pH 5.0 (5.0-7.0) 09/05/17 20:45 Ur Specific [place] 1.032 (1.003-1.030) H 09/05/17 20:45 Urine Protein >500 mg/dL (Negative) 09/05/17 20:45 Urine Glucose (UA) Neg mg/dL (Negative) 09/05/17 20:45 Urine Ketones Tr mg/dL (Negative) 09/05/17 20:45 Urine Blood Mod (Negative) 09/05/17 20:45 Urine Nitrite Neg (Negative) 09/05/17 20:45 Urine Bilirubin Neg (Negative) 09/05/17 20:45 Urine Urobilinogen < 2.0 mg/dL (<2.0) 09/05/17 20:45 Ur Leukocyte Esterase Neg (Negative) 09/05/17 20:45 Urine WBC (Auto) 2.0 /HPF (0.0-6.0) 09/05/17 20:45 Urine RBC (Auto) 1.0 /HPF (0.0-6.0) 09/05/17 20:45 U Epithel Cells (Auto) < 1.0 /HPF (0-13.0) 09/05/17 20:45 Urine Mucus 3+ /HPF 09/05/17 20:45 HIV 1&2 Antibody Rapid Non react (Non React) 09/06/17 10:10 HIV P24 Antigen Non react (Non React) 09/06/17 10:10
[2017-09-08] MEDS: PEPCID PO SCH (10:44)
[2017-09-08] MEDS: LOVENOX SUB-Q SCH (10:44)
[2017-09-08] MEDS: ROCEPHIN/NS 1 GM/50 ML 1 GM/50 ML BAG IV SCH (10:44)
--- NOTE | 2017-09-08 11:47 | Query- Pneumonia Documented ---
Deasukhdeep Jacobson___[place] Date:__09/08/2017 Wire Charger/CDS:__Candy Phone#:_[phone] Exercise your independent professional judgment when responding to query. Questions asked do not imply a particular answer is desired or expected. We greatly appreciate your clarification on this issue. Clinical Documentation States: 42 Year old male was admitted on 09/06/2017 with a chief complaint nausea, vomiting and RUQ abdominal pain. The Hospitalist Progress (Dr. Mcpherson) note on 09/08/2017 states "Pneumonia Chest X-ray showed Pulmonary consolidation in the posterior right lung base. Started on IV Rocephin and azithromycin." Please further specify known or suspected Etiology: [ ] Aspiration Pneumonia [ ] Gram Negative Pneumonia [ ] Gram Positive Pneumonia [ ] Pseudomonas Pneumonia [ ] MRSA - related Pneumonia [ ] Viral Pneumonia [ ] Candidal Pneumonia [ ] Other: [ x] Unable to determine Present on Admission: [x ] Yes (Y) [ ] Clinically undeterminable (W) [ ] No (N) Please also document response in your Progress Notes and/or Discharge Summary and indicate if the condition was present on admission. MTDD
--- NOTE | 2017-09-08 15:26 | Gastroenterology Consultation ---
History of Present Illness - Reason for Consult Consult date: 09/08/17 Intractable N/V Requesting physician: MEHRAN TUCKER - History of Present Illness MR Morgan is a 42 y/o male admitted with N/V and upper quadrant pain. He has a past medical history of schizophrenia, bipolar disorder multiple attempted of suicide. The patient states that for the past month has had nausea and vomiting with associated upper quadrant pain. During assessment the patient is visibly upset and keeps repeating " Im leaving here and going to [facility]" He is talking on the phone and is very irate. He states his pain has now resolved. On admission he was diagnosed with PNA and treated for sepsis. His last BM was this AM with no signs of GI bleeding. He does note that he smokes marijuana daily and occasionally consumes ETOH. Past History Past Medical History: other ( Schizophrenia, bipolar disorder multiple attempt of suicide ) Past Surgical History: cholecystectomy Social history: smoking Family history: no significant family history Medications and Allergies Allergies Allergy/AdvReac Type Severity Reaction Status Date / Time No Known Allergies Allergy Verified 10/14/16 15:38 Home Medications Medication Instructions Recorded Confirmed Last Taken Type No Known Home Medications [No 10/14/16 09/06/17 Unknown History Reported Home Medications] Active Meds: Active Medications Acetaminophen (Tylenol) 650 mg PO Q4H PRN PRN Reason: Pain MILD(1-3)/Fever >100.5/REN Azithromycin (Zithromax) 500 mg PO QDAY [facility] Last Admin: 09/08/17 10:44 Dose: 500 mg Bisacodyl (Dulcolax) [address] QDAY PRN PRN Reason: Constipation Enoxaparin Sodium (Lovenox) 40 mg SUB-Q QDAY [facility] Last Admin: 09/08/17 10:44 Dose: 40 mg Famotidine (Pepcid) 10 mg PO BID [facility] Last Admin: 09/08/17 10:44 Dose: 10 mg Hydromorphone HCl (Dilaudid) 0.5 mg IV Q4H PRN PRN Reason: Pain , Severe (7-10) Last Admin: 09/08/17 08:24 Dose: 0.5 mg Sodium Chloride (Nacl 0.9% 1000 Ml) 1,000 mls @ 100 mls/hr IV DIRECT [facility] Last Admin: 09/07/17 17:12 Dose: 100 mls/hr Ceftriaxone Sodium (Rocephin/Ns 1 Gm/50 Ml) 1 gm in 50 mls @ 100 mls/hr IV Q24HR LOS Last Admin: 09/08/17 10:44 Dose: 100 mls/hr Ondansetron HCl (Zofran) 4 mg IV Q4H PRN PRN Reason: Nausea And Vomiting Last Admin: 09/08/17 11:38 Dose: 4 mg Review of Systems - Review of Systems All systems: negative Constitutional: chronic pain Gastrointestinal: nausea, vomiting Exam - Constitutional Vital Signs: Temp Pulse Resp BP Pulse Ox 99.9 F H 78 20 122/70 92 09/07/17 23:54 09/07/17 23:54 09/08/17 05:43 09/07/17 23:54 09/07/17 23:54 General appearance: no acute distress - EENT ENT: hearing intact - Neck Neck: supple - Respiratory Respiratory effort: normal Respiratory: bilateral: CTA - Cardiovascular Rhythm: regular Heart Sounds: Present: S1 & S2 - Gastrointestinal General gastrointestinal: Present: soft, tender, normal bowel sounds - Integumentary Integumentary: Present: warm, dry - Neurologic Neurological: alert and oriented x3 - Psychiatric Psychiatric: appropriate mood/affect, cooperative - Labs CBC & Chem 7: 09/07/17 04:15 09/07/17 04:15 Assessment and Plan 1. Intractable N/V -Nursing confirms the patient did vomit today, -He is currently eating chocolate pudding and apple pie as we are talking. -He denies pain at this time -No signs of GI bleeding -Lipase WNL -CT WNL -LFTS WNL -S/p CCY 4 years ago. No prior EGD. -WBC now decreased from 19K on admission to 12K. -N/V could be in part related to daily marijuana use -rebound vomiting. -KUB -Further recommendations to follow.
[2017-09-09 10:01] LABS: HIV-1 RNA QN PCR <1.30 Log cps/mL (<1.30); HIV-1 RNA QN PCR <20 copies/mL (<20)
== END 2017-09-08 21:41 | disposition left against medical advice (07) | DRG 871 ==
LOC: ED 20:12 → 3A 09-06 10:00
PROVIDERS: ADMIT Hospitalist; ATTEND Hospitalist
DX: A41.9 Sepsis, unspecified organism (principal); J18.9 Pneumonia, unspecified organism; F20.9 Schizophrenia, unspecified; R06.6 Hiccough; F31.9 Bipolar disorder, unspecified; E86.0 Dehydration; Z91.5 Personal history of self-harm; Z90.49 Acquired absence of other specified parts of digestive tract
CPT/HCPCS: 36415; 71020; 74177; 80048; 80053; 81001; 82140; 82150; 83036; 83690; 85025; 87040; 87535; 87536; 87806; 96372; 96374; 99406; J0456; J0696; J1170; J1650; J2405; J2543; J7030; J7050; Q9967

== ENCOUNTER 2019-07-31 13:06 | Emergency (ER) | payer MEDICAID ==
[2019-07-31] MEDS ORDERED: ONDANSETRON 4 MG/2 ML INJ IV STA ×2 (13:54→16:32)
[2019-07-31] MEDS ORDERED: SODIUM CHLORIDE 0.9% 1000 ML 1,000 ML IV ONE (13:54)
[2019-07-31] MEDS ORDERED: METOCLOPRAMIDE 10 MG/2 ML INJ IV STA (13:54)
[2019-07-31] MEDS ORDERED: diphenhydrAMINE 50 MG/ML VIAL IV STA (13:54)
[2019-07-31] MEDS ORDERED: HYOSCYAMINE SUBL 0.125 MG TAB SL ONE (13:54)
--- NOTE | 2019-07-31 13:57 | Emergency Department Report ---
<LIZET BOTELLO - Last Filed: 07/31/19 18:39> ED N/V/D HPI - General Chief complaint: Nausea/Vomiting/Diarrhea Stated complaint: N/V Time Seen by Provider: 07/31/19 13:53 Source: patient Mode of arrival: Stretcher Limitations: No Limitations - History of Present Illness MD complaint: nausea, vomiting, abdominal pain -: Sudden, days(s) (1) Associated Abdominal Pain: No Location: diffuse Radiation: none Severity: mild Quality: sharp Consistency: constant Improves with: vomiting Worsens with: eating, movement Associated Symptoms: loss of appetite, malaise, nausea/vomiting. denies: myalgias, chest pain, cough, diaphoresis - Related Data Previous Rx's Medication Instructions Recorded Last Taken Type Hyoscyamine Subl [Levsin Sl 0.125 0.125 mg SL Q6HR PRN #20 tab 07/31/19 Unknown Rx TAB] Ondansetron [Zofran ODT TAB] 8 mg PO Q12HR #14 tab.rapdis 07/31/19 Unknown Rx Allergies Allergy/AdvReac Type Severity Reaction Status Date / Time No Known Allergies Allergy Verified 10/14/16 15:38 ED Review of Systems Comment: All other systems reviewed and negative ED Past Medical Hx - Past Medical History Hx Congestive Heart Failure: No Hx Diabetes: No Hx Psychiatric Treatment: Yes (DEPRESSION / BIPOLAR / SCHIZOPHRENIA) Hx Asthma: No Hx COPD: No - Surgical History Hx Cholecystectomy: Yes (March 2014) - Social History Smoking Status: Current Every Day Smoker Substance Use Type: Alcohol - Medications Home Medications: Home Medications Medication Instructions Recorded Confirmed Last Taken Type Hyoscyamine Subl [Levsin Sl 0.125 0.125 mg SL Q6HR PRN #20 tab 07/31/19 Unknown Rx TAB] Ondansetron [Zofran ODT TAB] 8 mg PO Q12HR #14 tab.rapdis 07/31/19 Unknown Rx ED Physical Exam - General Limitations: No Limitations General appearance: alert, other (appears to be uncomfortable perspiration to the forehead) - Head Head exam: Present: atraumatic, normocephalic - Eye Eye exam: Present: normal appearance, PERRL, EOMI Pupils: Present: normal accommodation - ENT ENT exam: Present: normal exam, normal orophraynx, mucous membranes moist - Neck Neck exam: Present: normal inspection, full ROM. Absent: meningismus, lymphadenopathy, thyromegaly - Respiratory Respiratory exam: Present: normal lung sounds bilaterally. Absent: respiratory distress, wheezes, rales, rhonchi, chest wall tenderness, accessory muscle use, decreased breath sounds - Cardiovascular Cardiovascular Exam: Present: regular rate, normal rhythm. Absent: bradycardia, tachycardia, irregular rhythm, systolic murmur, diastolic murmur, rubs, gallop - GI/Abdominal GI/Abdominal exam: Present: soft, tenderness (to the entire abdomen bowel sounds are), normal bowel sounds, other (no Davis Harris, no Edmund sign,). Absent: distended, guarding, rebound, rigid, organomegaly, hernia - Rectal Rectal exam: Present: deferred - Extremities Exam Extremities exam: Present: normal inspection, full ROM, normal capillary refill - Back Exam Back exam: Present: normal inspection. Absent: CVA tenderness (R), CVA tenderness (L) - Neurological Exam Neurological exam: Present: alert, oriented X3, CN II-XII intact - Psychiatric Psychiatric exam: Present: normal affect, normal mood - Skin Skin exam: Present: warm, dry, intact, normal color. Absent: rash ED Medical Decision Making - Lab Data Result diagrams: 07/31/19 13:32 07/31/19 13:32 ED Disposition Clinical Impression: Gastroenteritis Nausea & vomiting Qualifiers: Vomiting type: unspecified Vomiting Intractability: non-intractable Qualified Code(s): R11.2 - Nausea with vomiting, unspecified Disposition: DC-01 TO HOME OR SELFCARE Is pt being admited?: No Does the pt Need Aspirin: No Condition: Stable Instructions: Gastroenteritis (ED), Acute Nausea and Vomiting (ED), Abdominal Pain (ED) Prescriptions: Hyoscyamine Subl [Levsin Sl 0.125 TAB] 0.125 mg SL Q6HR PRN #20 tab PRN Reason: abdominal cramps and spasms Ondansetron [Zofran ODT TAB] 8 mg PO Q12HR #14 tab.rapdis Referrals: PRIMARY CARE,MD [Primary Care Provider] - 3-5 Days [facility] [Provider Group] - 3-5 Days <RIMA ALBA - Last Filed: 07/31/19 19:56> ED Review of Systems ROS: Stated complaint: N/V Other details as noted in HPI ED Course Vital Signs 07/31/19 07/31/19 07/31/19 13:08 13:15 13:30 Temperature 97.9 F Pulse Rate 83 76 75 Respiratory 18 27 H 30 H Rate Blood Pressure 145/94 145/94 Blood Pressure 144/96 [Left] O2 Sat by Pulse 98 Oximetry 07/31/19 07/31/19 07/31/19 14:23 14:30 15:02 Temperature Pulse Rate 71 75 99 H Respiratory 17 23 19 Rate Blood Pressure 145/94 160/98 Blood Pressure [Left] O2 Sat by Pulse 100 100 Oximetry 07/31/19 07/31/19 07/31/19 15:16 15:30 15:46 Temperature Pulse Rate 91 H 97 H 87 Respiratory 28 H 35 H 24 Rate Blood Pressure 160/98 160/98 Blood Pressure [Left] O2 Sat by Pulse 98 98 98 Oximetry 07/31/19 07/31/19 07/31/19 16:00 16:30 17:00 Temperature Pulse Rate 90 87 Respiratory 35 H 37 H Rate Blood Pressure 160/98 160/98 160/98 Blood Pressure [Left] O2 Sat by Pulse 97 97 98 Oximetry 07/31/19 07/31/19 07/31/19 17:30 18:00 18:43 Temperature Pulse Rate 93 H 90 82 Respiratory 28 H 24 Rate Blood Pressure 133/81 132/67 132/67 Blood Pressure [Left] O2 Sat by Pulse 95 96 Oximetry 07/31/19 19:00 Temperature Pulse Rate 79 Respiratory 24 Rate Blood Pressure 132/67 Blood Pressure [Left] O2 Sat by Pulse 98 Oximetry ED Medical Decision Making - Lab Data Result diagrams: 07/31/19 18:51 07/31/19 13:32 - Radiology Data Radiology results: report reviewed, image reviewed cxr normal ct abd pelvis: diverticulosis no obstruction - Medical Decision Making Patient previously admitted for leukocytosis negative workup symptoms are improved at this time we'll DC to home as planned patient will follow up with GI follow with PCP patient will return to ED if unable to tolerate by mouth intake and she'll be DC'd home in stable condition at this time patient verbalizes agreement and understanding with discharge plan patient is currently alert o riented 3 tolerating by mouth intake with no acute distress at this time Critical care attestation.: If time is entered above; I have spent that time in minutes in the direct care of this critically ill patient, excluding procedure time. ED Disposition Time of Disposition: 19:56
[2019-07-31 13:59] LABS: Hematocrit 48.2 % (35.5-45.6); Hemoglobin 15.4 gm/dl (11.8-15.2); Mean Corpuscular HGB Conc 32 % (32-34); Mean Corpuscular Volume 87 fl (84-94); Platelet Count 317 K/mm3 (140-440); Red Blood Count 5.54 M/mm3 (3.65-5.03); Red Cell Distribution Width 14.5 % (13.2-15.2)
[2019-07-31 14:22] LABS: Bacteria,Urine 1+ /HPF (Negative); Bilirubin,Urine NEG (Negative); Blood,Urine NEG (Negative); Color,Urine Yellow (Yellow); Mucus,Urine FEW /HPF; Urobilinogen,Urine < 2.0 mg/dL (<2.0)
[2019-07-31 14:28] LABS: Alanine Aminotransferase 23 units/L (7-56); Albumin 4.9 g/dL (3.9-5); BUN/Creatinine Ratio 8; Blood Urea Nitrogen 10 mg/dL (9-20); Calcium 9.5 mg/dL (8.4-10.2); Hemolysis Index 10
[2019-07-31 14:53] LABS: Band Neutrophils # (Manual) 0.4 K/mm3; Basophils % (Manual) 0 % (0.0-1.8); Eosinophils % (Manual) 0 % (0.0-4.3); Total Cells Counted 100
[2019-07-31 14:54] LABS: Platelet Estimate Consistent w Auto; RBC Morphology Normal
--- NOTE | 2019-07-31 15:15 | Cat Scan Report ---
CT ABDOMEN AND PELVIS WITH CONTRAST HISTORY: Diffuse abdominal pain, nausea and vomiting for 24 hours COMPARISON: 09/06/2017 TECHNIQUE: Axial CT images were obtained through the abdomen and pelvis after 100 cc of Omnipaque 300 intravenously. Sagittal and coronal reformatted images. All CT scans at this location are performed using CT dose reduction for ALARA by means of automated exposure control. FINDINGS: CT ABDOMEN: Lung Bases: Clear. Liver: No significant abnormality. Biliary: Cholecystectomy. No biliary dilatation. Spleen: No significant abnormality. Unenlarged. Pancreas: No significant abnormality. Adrenals: No significant abnormality. Kidneys: 2.6 cm simple cyst is identified at the inferior pole of the right kidney. Otherwise, the ki dneys and renal collecting systems are unremarkable. Lymphatics: No lymphadenopathy. Vasculature: No significant abnormality. Bowel/Peritoneum: There are several diverticula throughout the length of the colon. No evidence for a cute inflammatory changes. The remaining bowel loops are unremarkable. No obstruction. Normal appendi x. CT PELVIS: : No significant abnormality. Osseous Structures: No significant abnormality. Additional Findings: None IMPRESSION: No acute inflammatory process is identified. Diverticulosis of the colon. Cholecystectomy. Right renal cyst. Signer Name: Zackery Hendrix Jr, MD Signed: 07/31/2019 3:10 PM Workstation Name: [id number]
[2019-07-31 15:41] LABS: Amphetamine Screen,Urine PRESUMPTIVE NEGATIVE; Benzodiazepines Screen,Urine PRESUMPTIVE NEGATIVE; Cocaine Screen,Urine PRESUMPTIVE NEGATIVE; Methadone Screen,Urine PRESUMPTIVE NEGATIVE; Opiate Screen,Urine PRESUMPTIVE NEGATIVE
[2019-07-31 16:00] LABS: Cannabinoid Screen,Urine PRESUMPTIVE POSITIVE
[2019-07-31] MEDS ORDERED: ZIPRASIDONE MESYLATE 20 MG VIAL IM PRN (16:33)
[2019-07-31 18:23] VITALS: BP 132/67
--- NOTE | 2019-07-31 18:57 | XRay Report ---
CHEST PA AND LATERAL VIEWS INDICATION: cough sob. COMPARISON: 09/06/2017. FINDINGS: Support devices: None. Heart: Within normal limits. Lungs/Pleura: No acute pulmonary or pleural findings. IMPRESSION: 1. No significant abnormality. Signer Name: Jules Hebert MD Signed: 07/31/2019 6:53 PM Workstation Name: [id number]
[2019-07-31 19:08] LABS: Hematocrit 45.4 % (35.5-45.6); Hemoglobin 14.9 gm/dl (11.8-15.2); Mean Corpuscular HGB Conc 33 % (32-34); Mean Corpuscular Volume 87 fl (84-94); Platelet Count 280 K/mm3 (140-440); Red Blood Count 5.21 M/mm3 (3.65-5.03); Red Cell Distribution Width 14.4 % (13.2-15.2)
[2019-07-31] MEDS ORDERED: ONDANSETRON 4 MG/2 ML INJ IV ONE (19:14)
== END 2019-07-31 20:36 | disposition home or self-care (01) ==
LOC: ED 13:06
DX: K52.9 Noninfective gastroenteritis and colitis, unspecified (principal); F31.9 Bipolar disorder, unspecified; F20.9 Schizophrenia, unspecified; F17.200 Nicotine dependence, unspecified, uncomplicated; Z90.49 Acquired absence of other specified parts of digestive tract; Z79.899 Other long term (current) drug therapy
CPT/HCPCS: 36415; 71046; 74177; 80053; 80307; 81001; 83690; 85007; 85025; 85027; 96361; 96372; 96374; 96375; 96376; 99285; J1200; J2405; J2765; J3486; J7030; 80320; G0480

== ENCOUNTER 2019-08-21 10:40 | Emergency (ER) | payer MEDICAID ==
[2019-08-21 12:11] LABS: Basophils # (Auto) 0.2 K/mm3 (0.0-0.1); Basophils % (Auto) 1.1 % (0.0-1.8); Hematocrit 49.9 % (35.5-45.6); Hemoglobin 16.6 gm/dl (11.8-15.2); Lymphocytes % (Auto) 14.3 % (13.4-35.0); Mean Corpuscular HGB Conc 33 % (32-34); Mean Corpuscular Volume 86 fl (84-94); Monocytes # (Auto) 0.8 K/mm3 (0.0-0.8); Monocytes % (Auto) 5.4 % (0.0-7.3); Platelet Count 393 K/mm3 (140-440); Red Cell Distribution Width 14.2 % (13.2-15.2)
[2019-08-21 12:35] LABS: Alanine Aminotransferase 22 units/L (7-56); Albumin 5.3 g/dL (3.9-5); BUN/Creatinine Ratio 12; Bilirubin,Direct 0.3 mg/dL (0-0.2); Blood Urea Nitrogen 17 mg/dL (9-20); Calcium 10.4 mg/dL (8.4-10.2); Hemolysis Index 7
--- NOTE | 2019-08-21 12:43 | Emergency Department Report ---
ED Abdominal Pain HPI - General Chief Complaint: Abdominal Pain Stated Complaint: ABD PAIN Time Seen by Provider: 08/21/19 12:35 Source: patient Mode of arrival: Wheelchair Limitations: No Limitations - History of Present Illness Initial Comments: 44-year-old male patient with history of GERD complains of epigastric pain and vomiting 2 days. He denies hematemesis or coffee ground emesis. He admits to constipation for 2 days. History of cholecystectomy. Denies any current abdominal pain and states he just feels very nauseous. Also denies fevers /chills, chest pain, or shortness of breath. MD Complaint: abdominal pain Location: epigastric Radiation: none Migration to: no migration Severity scale (0 -10): 0 Improves With: nothing Worsens With: vomiting Associated Symptoms: nausea, vomiting, constipation. denies: diarrhea, fever, chills, dysuria, hematemesis, hematochezia, melena, hematuria, syncope - Related Data Home Medications Medication Instructions Recorded Confirmed Last Taken Benztropine [Cogentin] 1 mg PO BID 08/21/19 08/21/19 08/20/19 Dicyclomine [Bentyl] 10 mg PO BID 08/21/19 08/21/19 08/20/19 risperiDONE [Risperdal] 2 mg PO QHS 08/21/19 08/21/19 08/20/19 Previous Rx's Medication Instructions Recorded Last Taken Type Hyoscyamine Subl [Levsin Sl 0.125 0.125 mg SL Q6HR PRN #20 tab 07/31/19 08/20/19 Rx TAB] Ondansetron [Zofran ODT TAB] 8 mg PO Q12HR #14 tab.rapdis 07/31/19 08/20/19 Rx Metoclopramide [Reglan] 10 mg PO TID PRN #15 tab 08/21/19 Unknown Rx diphenhydrAMINE [Benadryl CAP] 25 mg PO TID PRN #20 capsule 08/21/19 Unknown Rx Allergies Allergy/AdvReac Type Severity Reaction Status Date / Time No Known Allergies Allergy Verified 10/14/16 15:38 ED Review of Systems ROS: Stated complaint: ABD PAIN Other details as noted in HPI Constitutional: denies: chills, fever Eyes: denies: vision change ENT: denies: throat pain Respiratory: denies: cough, shortness of breath, wheezing Cardiovascular: denies: chest pain, palpitations, edema Gastrointestinal: as per HPI Genitourinary: as per HPI Musculoskeletal: denies: back pain, joint swelling, arthralgia Skin: denies: rash, lesions Neurological: denies: headache, weakness, paresthesias Hematological/Lymphatic: denies: easy bleeding, easy bruising ED Past Medical Hx - Past Medical History Previous Medical History?: Yes Hx Congestive Heart Failure: No Hx Diabetes: No Hx Psychiatric Treatment: Yes (DEPRESSION / BIPOLAR / SCHIZOPHRENIA) Hx Asthma: No Hx COPD: No - Surgical History Past Surgical History?: Yes Hx Cholecystectomy: Yes (March 2014) - Social History Smoking Status: Current Every Day Smoker Substance Use Type: Alcohol, Marijuana - Medications Home Medications: Home Medications Medication Instructions Recorded Confirmed Last Taken Type Hyoscyamine Subl [Levsin Sl 0.125 0.125 mg SL Q6HR PRN #20 tab 07/31/19 08/21/19 08/20/19 Rx TAB] Ondansetron [Zofran ODT TAB] 8 mg PO Q12HR #14 tab.rapdis 07/31/19 08/21/19 08/20/19 Rx Benztropine [Cogentin] 1 mg PO BID 08/21/19 08/21/19 08/20/19 History Dicyclomine [Bentyl] 10 mg PO BID 08/21/19 08/21/19 08/20/19 History Metoclopramide [Reglan] 10 mg PO TID PRN #15 tab 08/21/19 Unknown Rx diphenhydrAMINE [Benadryl CAP] 25 mg PO TID PRN #20 capsule 08/21/19 Unknown Rx risperiDONE [Risperdal] 2 mg PO QHS 08/21/19 08/21/19 08/20/19 History ED Physical Exam - General Limitations: No Limitations General appearance: alert, in no apparent distress - Head Head exam: Present: atraumatic - Eye Eye exam: Present: normal appearance - ENT ENT exam: Present: mucous membranes moist - Neck Neck exam: Present: normal inspection - Respiratory Respiratory exam: Present: normal lung sounds bilaterally. Absent: respiratory distress, wheezes, rales, rhonchi - Cardiovascular Cardiovascular Exam: Present: regular rate, normal rhythm, normal heart sounds - GI/Abdominal GI/Abdominal exam: Present: soft, normal bowel sounds. Absent: distended, tenderness, guarding, rebound, rigid - Rectal Rectal exam: Present: deferred - Extremities Exam Extremities exam: Present: full ROM - Neurological Exam Neurological exam: Present: alert, oriented X3 - Psychiatric Psychiatric exam: Present: normal affect, normal mood - Skin Skin exam: Present: warm, dry, intact, normal color. Absent: rash, diaphoretic ED Course Vital Signs 08/21/19 08/21/19 08/21/19 10:46 12:24 14:42 Temperature 98.6 F 99.8 F H 98.6 F Pulse Rate 108 H 66 82 Respiratory 20 16 18 Rate Blood Pressure 92/68 Blood Pressure 147/105 157/103 [Left] O2 Sat by Pulse 97 100 97 Oximetry 08/21/19 17:00 Temperature Pulse Rate 76 Respiratory 16 Rate Blood Pressure Blood Pressure 115/72 [Left] O2 Sat by Pulse 100 Oximetry ED Medical Decision Making - Lab Data Result diagrams: 08/21/19 11:53 08/21/19 11:53 Lab Results 08/21/19 08/21/19 08/21/19 Range/Units 11:53 11:53 11:53 WBC 14.2 H (4.5-11.0) K/mm3 RBC 5.80 H (3.65-5.03) M/mm3 Hgb 16.6 H (11.8-15.2) gm/dl Hct 49.9 H (35.5-45.6) % MCV 86 (84-94) fl MCH 29 (28-32) pg MCHC 33 (32-34) % RDW 14.2 (13.2-15.2) % Plt Count 393 (140-440) K/mm3 Lymph % (Auto) 14.3 (13.4-35.0) % [place] % (Auto) 5.4 (0.0-7.3) % Eos % (Auto) 0.0 (0.0-4.3) % Baso % (Auto) 1.1 (0.0-1.8) % Lymph # 2.0 (1.2-5.4) K/mm3 [place] # 0.8 (0.0-0.8) K/mm3 Eos # 0.0 (0.0-0.4) K/mm3 Baso # 0.2 H (0.0-0.1) K/mm3 Seg Neutrophils % 79.2 H (40.0-70.0) % Seg Neutrophils # 11.3 H (1.8-7.7) K/mm3 Sodium 142 (137-145) mmol/L Potassium 3.6 (3.6-5.0) mmol/L Chloride 101.0 (98-107) mmol/L Carbon Dioxide 21 L (22-30) mmol/L Anion Gap 24 mmol/L BUN 17 (9-20) mg/dL Creatinine 1.4 (0.8-1.5) mg/dL Estimated GFR > 60 ml/min BUN/Creatinine Ratio 12 % Glucose 132 H (75-100) mg/dL Calcium 10.4 H (8.4-10.2) mg/dL Total Bilirubin 2.20 H (0.1-1.2) mg/dL Direct Bilirubin 0.3 H (0-0.2) mg/dL Indirect Bilirubin 1.9 mg/dL AST 21 (5-40) units/L ALT 22 (7-56) units/L Alkaline Phosphatase 70 (35-129) units/L Total Protein 8.5 H (6.3-8.2) g/dL Albumin 5.3 H (3.9-5) g/dL Albumin/Globulin Ratio 1.7 % Amylase 205 H (27-131) units/L Lipase 50 (13-60) units/L Influenza A (Rapid) (Negative) Influenza B (Rapid) (Negative) 08/21/19 Range/Units 14:39 WBC (4.5-11.0) K/mm3 RBC (3.65-5.03) M/mm3 Hgb (11.8-15.2) gm/dl Hct (35.5-45.6) % MCV (84-94) fl MCH (28-32) pg MCHC (32-34) % RDW (13.2-15.2) % Plt Count (140-440) K/mm3 Lymph % (Auto) (13.4-35.0) % [place] % (Auto) (0.0-7.3) % Eos % (Auto) (0.0-4.3) % Baso % (Auto) (0.0-1.8) % Lymph # (1.2-5.4) K/mm3 [place] # (0.0-0.8) K/mm3 Eos # (0.0-0.4) K/mm3 Baso # (0.0-0.1) K/mm3 Seg Neutrophils % (40.0-70.0) % Seg Neutrophils # (1.8-7.7) K/mm3 Sodium (137-145) mmol/L Potassium (3.6-5.0) mmol/L Chloride (98-107) mmol/L Carbon Dioxide (22-30) mmol/L Anion Gap mmol/L BUN (9-20) mg/dL Creatinine (0.8-1.5) mg/dL Estimated GFR ml/min BUN/Creatinine Ratio % Glucose (75-100) mg/dL Calcium (8.4-10.2) mg/dL Total Bilirubin (0.1-1.2) mg/dL Direct Bilirubin (0-0.2) mg/dL Indirect Bilirubin mg/dL AST (5-40) units/L ALT (7-56) units/L Alkaline Phosphatase (35-129) units/L Total Protein (6.3-8.2) g/dL Albumin (3.9-5) g/dL Albumin/Globulin Ratio % Amylase (27-131) units/L Lipase (13-60) units/L Influenza A (Rapid) Negative (Negative) Influenza B (Rapid) Negative (Negative) - Medical Decision Making 44-year-old male patient here with nausea and vomiting. Patient states he had abdominal pain earlier today but resolved prior to him getting to the ED. Patient seen here for similar symptoms and 07/31/2019. Alcides's exam without acute findings. WBCs elevated at 14-patient has history of chronically elevated WBCs. WBC is 07/31/2019 were 19. Eyes any fever/chills, diarrhea, shortness of breath, or cough. Flu negative. Symptoms did not improve with Zofran and Pr otonix, however symptoms did resolve with Reglan and Benadryl. Upon further questioning patient admits to marijuana use and states that this does occur when he uses marijuana. To DC home with GI follow-up. Strict return precautions in detail with patient who states understanding. Critical care attestation.: If time is entered above; I have spent that time in minutes in the direct care of this critically ill patient, excluding procedure time. ED Disposition Clinical Impression: Cannabinoid hyperemesis syndrome Disposition: DC- TO HOME OR SELFCARE Is pt being admited?: No Condition: Stable Instructions: Cannabis Abuse (ED) Prescriptions: diphenhydrAMINE [Benadryl CAP] 25 mg PO TID PRN #20 capsule PRN Reason: Nausea Metoclopramide [Reglan] 10 mg PO TID PRN #15 tab PRN Reason: Nausea Referrals: DANAE VARGAS MD [Staff Physician] - 3-5 Days
[2019-08-21] MEDS ORDERED: PANTOPRAZOLE 40 MG INJ IV ONE (13:00)
[2019-08-21] MEDS ORDERED: ONDANSETRON 4 MG/2 ML INJ IV ONE (13:00)
[2019-08-21] MEDS ORDERED: SODIUM CHLORIDE 0.9% 1000 ML 1,000 ML IV ONE (13:01)
[2019-08-21] MEDS ORDERED: diphenhydrAMINE 50 MG/ML VIAL IV ONE (14:08)
[2019-08-21] MEDS ORDERED: METOCLOPRAMIDE 10 MG/2 ML INJ IV ONE (14:08)
[2019-08-21 17:52] VITALS: BP 136/92
== END 2019-08-21 17:52 | disposition home or self-care (01) ==
LOC: ED 10:40
DX: R10.13 Epigastric pain (principal); R11.10 Vomiting, unspecified; F12.988 Cannabis use, unspecified with other cannabis-induced disorder; F31.9 Bipolar disorder, unspecified; F20.9 Schizophrenia, unspecified; F17.200 Nicotine dependence, unspecified, uncomplicated; Z98.890 Other specified postprocedural states; Z79.899 Other long term (current) drug therapy
CPT/HCPCS: 36415; 80053; 80076; 82150; 83690; 85025; 87400; 96361; 96374; 96375; 99284; C9113; J1200; J2405; J2765; J7030

== ENCOUNTER 2019-08-23 02:56 | Emergency (ER) | payer MEDICAID ==
[2019-08-23 03:32] LABS: Basophils # (Auto) 0.1 K/mm3 (0.0-0.1); Basophils % (Auto) 0.9 % (0.0-1.8); Hematocrit 49.2 % (35.5-45.6); Hemoglobin 16.3 gm/dl (11.8-15.2); Lymphocytes % (Auto) 24.3 % (13.4-35.0); Mean Corpuscular HGB Conc 33 % (32-34); Mean Corpuscular Volume 86 fl (84-94); Monocytes # (Auto) 0.9 K/mm3 (0.0-0.8); Monocytes % (Auto) 7.5 % (0.0-7.3); Platelet Count 389 K/mm3 (140-440); Red Blood Count 5.71 M/mm3 (3.65-5.03); Red Cell Distribution Width 14.1 % (13.2-15.2)
[2019-08-23 03:55] LABS: Alanine Aminotransferase 26 units/L (7-56); BUN/Creatinine Ratio 13; Blood Urea Nitrogen 16 mg/dL (9-20); Hemolysis Index 6
[2019-08-23] MEDS ORDERED: POTASSIUM CHLORIDE ER 20 MEQ TAB PO ONE (06:01)
[2019-08-23] MEDS ORDERED: ONDANSETRON 4 MG ODT TAB PO ONE (06:37)
--- NOTE | 2019-08-23 07:00 | Emergency Department Report ---
HPI - General Chief Complaint: Weakness Time Seen by Provider: 08/23/19 06:00 - HPI HPI: 44-year-old -[place] male presents to the emergency department with a complaint of some nausea and vomiting that he says is secondary to marijuana use. He says "I have been told him allergic to marijuana" as he says that this happens every time after smoking. The patient was here 2 days ago for similar symptoms. He received some Reglan and Benadryl with improvement of his symptoms and was discharged home with the outpatient plan to follow up with GI. Patient has not seen GI and does not have a primary care physician. He denies any current abdominal pain. He has some type of psychiatric history, bipolar disorder versus schizophrenia. He has a history of a previous cholecystectomy. ED Past Medical Hx - Past Medical History Previous Medical History?: Yes Hx Congestive Heart Failure: No Hx Diabetes: No Hx Psychiatric Treatment: Yes (DEPRESSION / BIPOLAR / SCHIZOPHRENIA) Hx Asthma: No Hx COPD: No - Surgical History Past Surgical History?: Yes Hx Cholecystectomy: Yes (March 2014) - Social History Smoking Status: Current Every Day Smoker Substance Use Type: Marijuana - Medications Home Medications: Home Medications Medication Instructions Recorded Confirmed Last Taken Type Hyoscyamine Subl [Levsin Sl 0.125 0.125 mg SL Q6HR PRN #20 tab 07/31/19 08/21/19 08/20/19 Rx TAB] Ondansetron [Zofran ODT TAB] 8 mg PO Q12HR #14 tab.rapdis 07/31/19 08/21/19 08/20/19 Rx Benztropine [Cogentin] 1 mg PO BID 08/21/19 08/21/19 08/20/19 History Dicyclomine [Bentyl] 10 mg PO BID 08/21/19 08/21/19 08/20/19 History diphenhydrAMINE [Benadryl CAP] 25 mg PO TID PRN #20 capsule 08/21/19 Unknown Rx risperiDONE [Risperdal] 2 mg PO QHS 08/21/19 08/21/19 08/20/19 History Metoclopramide [Reglan TAB] 10 mg PO TID PRN #15 tab 08/23/19 Unknown Rx ED Review of Systems ROS: Stated complaint: WEAKNESS Other details as noted in HPI Comment: All other systems reviewed and negative Constitutional: denies: chills, fever Eyes: denies: eye pain, vision change ENT: denies: ear pain, throat pain Respiratory: denies: cough, shortness of breath Cardiovascular: denies: chest pain, palpitations Gastrointestinal: nausea, vomiting Genitourinary: denies: dysuria, discharge Musculoskeletal: denies: back pain, arthralgia Skin: denies: rash, lesions Neurological: denies: headache, weakness Physical Exam - Physical Exam Vital Signs: Vital Signs 08/23/19 03:03 Temperature 99.1 F Pulse Rate 103 H Respiratory 22 Rate Blood Pressure 143/101 O2 Sat by Pulse 99 Oximetry Physical Exam: GENERAL: The patient is well-developed well-nourished. HENT: Normocephalic. Atraumatic. Patient has moist mucous membranes. EYES: Extraocular motions are intact. NECK: Supple. Trachea is midline. CHEST/LUNGS: Clear to auscultation. There is no respiratory distress noted. HEART/CARDIOVASCULAR: Regular. There is no tachycardia. There is no murmur. ABDOMEN: Abdomen is soft, nontender. Patient has normal bowel sounds. There is no abdominal distention. SKIN: Skin is warm and dry. NEURO: The patient is awake, alert, and oriented. The patient is cooperative. The patient has no focal neurologic deficits. Normal speech. MUSCULOSKELETAL: There is no tenderness or deformity. There is no limitation range of motion. There is no evidence of acute injury. ED Course Vital Signs 08/23/19 03:03 Temperature 99.1 F Pulse Rate 103 H Respiratory 22 Rate Blood Pressure 143/101 O2 Sat by Pulse 99 Oximetry ED Medical Decision Making - Lab Data Result diagrams: 08/23/19 03:18 08/23/19 03:18 - Medical Decision Making The patient presented with complaint of some nausea, vomiting and some abdominal pain that he says is related to marijuana use. This appears consistent with cannabinoid hyperemesis syndrome. However the patient has not been vomiting since presentation to the emergency department. His abdomen is soft, nondistended and nontoxic in appearance. Labs show a mild cytosis but this is consistent with previous visits. He also has some mild hypokalemia with potassium of 3.1 that was replaced with potassium chloride. His vital signs stable throughout his ED course. The patient was able to pass oral challenge without any return of his nausea or vomiting. He was seen ambulatory in the emergency department and appears stable. He'll be discharged home to follow-up with primary care and gastroenterology and has been given a prescription for Reg jasson. - Differential Diagnosis cannabinoid hyperemesis syndrome, food poisoning, gastroenteritis Critical Care Time: No Critical care attestation.: If time is entered above; I have spent that time in minutes in the direct care of this critically ill patient, excluding procedure time. ED Disposition Clinical Impression: Cannabinoid hyperemesis syndrome, Hypokalemia Nausea & vomiting Qualifiers: Vomiting type: unspecified Vomiting Intractability: unspecified Qualified Code(s): R11.2 - Nausea with vomiting, unspecified Disposition: DC- TO HOME OR SELFCARE Is pt being admited?: No Condition: Stable Instructions: Hypokalemia (ED), Acute Nausea and Vomiting (ED), Cannabis Abuse (ED) Additional Instructions: I am giving you a referral for some local primary care clinics in the area. I am also giving you a referral for a local wax molder, Dr. Campbell, to follow up regarding your consistent nausea, vomiting and abdominal pains. This appears to be related to marijuana use and therefore it is highly recommended that you avoid any further marijuana or any illicit substance use. Increase your oral rehydration. Return to the emergency Department with any worsening of your symptoms or any acute distress. Prescriptions: Metoclopramide [Reglan TAB] 10 mg PO TID PRN #15 tab PRN Reason: Nausea Referrals: [facility]– [place] [Outside] - 2-3 Days [facility] [Outside] - 2-3 Days [facility] [Outside] - 2-3 Days DANAE CAMPBELL MD [Staff Physician] - 2-3 Days Time of Disposition: 07:24
[2019-08-23 07:49] VITALS: BP 117/62
== END 2019-08-23 07:49 | disposition home or self-care (01) ==
LOC: ED 02:56
DX: R11.2 Nausea with vomiting, unspecified (principal); E78.6 Lipoprotein deficiency; F31.9 Bipolar disorder, unspecified; F20.9 Schizophrenia, unspecified; F17.200 Nicotine dependence, unspecified, uncomplicated
CPT/HCPCS: 36415; 80053; 83735; 85025; Q0162